=== PATIENT | female | born 1930 | race Caucasian/White ===

== ENCOUNTER 2018-03-28 16:02 | Observation (INO) | payer MEDICARE, BC ==
[~2018-03-28] VITALS: Ht 152.4 cm; Wt 59.0 kg
--- NOTE | 2018-03-28 16:07 | ER Report ---
History and Physical Time Seen By MD: 16:07 HPI/ROS CHIEF COMPLAINT: Hypokalemia HISTORY OF PRESENT ILLNESS: 87-year-old female patient presents to emergency room with complaint of hypokalemia. Patient was following up with her primary care provider who checked some labs. At that time she was found to have a potassium of 2.0. He was his recommendation at that time that she come to the emergency room for evaluation and ultimately admission to the hospital. Patient states that she is not having any chest pain. She states she does have pain to the right leg, she does have a pathologic fracture to that leg. She denies any nausea, vomiting or diarrhea. Patient was placed on Lasix for 5 days and reviewing her medication list did not have supplemental potassium were ordered. Patient denies any fevers, chills, nausea, vomiting or diarrhea. REVIEW OF SYSTEMS: Respiratory: No cough, no dyspnea. Cardiovascular: No chest pain, no palpitations. Gastrointestinal: No vomiting, no abdominal pain. Musculoskeletal: As noted above Allergies: Coded Allergies: Penicillins (Verified Allergy, Unknown, 03/28/18) Home Meds Reported Medications Mirtazapine (REMERON) 15 Mg Tab.rapdis, 7.5 MG PO DAILY 03/28/18 Sennosides (SENNA) 8.6 Mg Tablet, 8.6 MG PO 03/28/18 Ibuprofen (IBUPROFEN) 400 Mg Tablet, 1 TAB PO Q8H, TAB 03/28/18 Nystatin (NYSTATIN) 500,000 Unit Tablet, [id number] UNIT PO 03/28/18 Lidocaine/Menthol (LIDOPATCH) 1 Each Adh..patch, 1 EACH TP 03/28/18 Lidocaine Hcl (LIDOCAINE) 35.44 Gm Oint, 5 GM TP 03/28/18 Tuberculin,Purif.prot.deriv. (APLISOL) 5 Tub Unit/0.1 Ml Vial, 5 TUB ID, VIAL 03/28/18 Acetaminophen 500 Mg Tab (ACETAMINOPHEN EXTRA STRENGTH) 500 Mg Tablet, 500 MG PO Q4H, TAB 03/28/18 Oxycodone Hcl (OXYCONTIN) 10 Mg Tab.er.12h, 5 MG PO Q4-6H for PAIN, TAB 03/28/18 Magnesium Hydroxide (MILK OF MAGNESIA) 400 Mg/5 Ml Oral.susp, 400 MG PO, BOTTLE 03/28/18 Past Medical/Surgical History Patient has a past medical history of renal cell carcinoma. Patient has surgical history of right hip replacement, cataract surgery, hysterectomy, right carpal tunnel release. Patient has a family medical history of uterine cancer. Reviewed Nurses Notes: Yes Constitutional Vital Sign - Last 24 Hours 03/28/18 03/28/18 03/28/18 03/28/18 16:02 16:11 16:13 16:15 Temp 97.4 Pulse ??? 85 Resp 14 B/P (MAP) 94/54 (67) 94/54 93/57 (69) Pulse Ox 97 O2 Delivery Nasal Cannula 03/28/18 03/28/18 03/28/18 03/28/18 16:17 16:30 16:32 16:45 Pulse 82 82 Resp 18 13 B/P (MAP) 75/58 (64) 96/59 (71) Pulse Ox 97 96 03/28/18 03/28/18 03/28/18 03/28/18 16:47 17:00 17:02 17:15 Pulse 79 79 Resp 10 12 B/P (MAP) 96/55 (69) 103/57 (72) Pulse Ox 99 100 03/28/18 03/28/18 03/28/18 03/28/18 17:17 17:30 17:32 17:45 Pulse 78 81 Resp 14 12 B/P (MAP) 104/59 (74) 104/73 (83) Pulse Ox 99 99 O2 Delivery Nasal Cannula O2 Flow Rate 2 03/28/18 03/28/18 03/28/18 03/28/18 17:47 17:52 18:00 18:07 Pulse 82 82 ??? Resp 15 10 15 B/P (MAP) 119/63 (81) Pulse Ox 97 94 03/28/18 03/28/18 03/28/18 03/28/18 18:15 18:22 18:30 18:37 Pulse 79 79 Resp 8 10 B/P (MAP) 105/62 (76) 117/62 (80) Pulse Ox 99 99 03/28/18 18:45 B/P (MAP) 116/63 (80) Physical Exam General Appearance: The patient is alert, has no immediate need for airway protection and no current signs of toxicity. Respiratory: Chest is non tender, lungs are clear to auscultation. Cardiac: regular rate and rhythm Gastrointestinal: Abdomen is soft and non tender, no masses, bowel sounds normal. Musculoskeletal: Neck: Neck is supple and non tender. Extremities have full range of motion and are non tender. Patient does have tenderness to the right leg. Skin: No rashes or lesions. DIFFERENTIAL DIAGNOSIS: After history and physical exam differential diagnosis was considered for hypokalemia, pathologic fracture right lower extremity. Medical Decision Making Data Points Result Diagram: 03/28/18 1656 03/28/18 1656 Laboratory Hematology Test 03/28/18 16:56 Red Blood Count 4.68 M/uL (4.17-5.56) Mean Corpuscular Volume 73.6 fL (80.0-96.0) Mean Corpuscular Hemoglobin 22.8 pg (26.0-33.0) Mean Corpuscular Hemoglobin Concent 31.0 g/dL (32.0-36.0) Red Cell Distribution Width 39.2 % (11.5-14.5) Mean Platelet Volume 8.5 fL (7.2-11.1) Neutrophils (%) (Auto) 88.0 % (39.4-72.5) Lymphocytes (%) (Auto) 6.0 % (17.6-49.6) Monocytes (%) (Auto) 5.7 % (4.1-12.4) Eosinophils (%) (Auto) 0.1 % (0.4-6.7) Basophils (%) (Auto) 0.2 % (0.3-1.4) Nucleated RBC Relative Count (auto) 0.0 /100WBC Neutrophils # (Auto) 10.4 K/uL (2.0-7.4) Lymphocytes # (Auto) 0.7 K/uL (1.3-3.6) Monocytes # (Auto) 0.7 K/uL (0.3-1.0) Eosinophils # (Auto) 0.0 K/uL (0.0-0.5) Basophils # (Auto) 0.0 K/uL (0.0-0.1) Nucleated RBC Absolute Count (auto) 0.01 K/uL Peripheral Blood Smear Yes Y/N Sodium Level 140 mmol/L (137-145) Potassium Level 2.5 mmol/L (3.5-5.0) Chloride Level 101 mmol/L (98-107) Carbon Dioxide Level 31 mmol/L (22-31) Blood Urea Nitrogen 20 mg/dl (7-18) Creatinine 0.60 mg/dl (0.52-1.04) Glomerular Filtration Rate Calc > 60.0 Random Glucose 83 mg/dl (75-110) Calcium Level 7.8 mg/dl (8.4-10.2) Magnesium Level 2.6 mg/dl (1.7-2.2) Total Bilirubin 0.6 mg/dl (0.2-1.3) Aspartate Amino Transf (AST/SGOT) 27 U/L (0-35) Alanine Aminotransferase (ALT/SGPT) 21 U/L (0-56) Alkaline Phosphatase 385 U/L (0-126) Troponin I 0.031 ng/ml Total Protein 5.7 g/dl (6.3-8.2) Albumin 2.2 g/dl (3.5-5.0) Chemistry Test 03/28/18 16:56 White Blood Count 11.9 k/uL (4.5-11.0) Red Blood Count 4.68 M/uL (4.17-5.56) Hemoglobin 10.7 g/dL (12.0-16.0) Hematocrit 34.5 % (34.0-47.0) Mean Corpuscular Volume 73.6 fL (80.0-96.0) Mean Corpuscular Hemoglobin 22.8 pg (26.0-33.0) Mean Corpuscular Hemoglobin Concent 31.0 g/dL (32.0-36.0) Red Cell Distribution Width 39.2 % (11.5-14.5) Platelet Count 392 K/uL (150-450) Mean Platelet Volume 8.5 fL (7.2-11.1) Neutrophils (%) (Auto) 88.0 % (39.4-72.5) Lymphocytes (%) (Auto) 6.0 % (17.6-49.6) Monocytes (%) (Auto) 5.7 % (4.1-12.4) Eosinophils (%) (Auto) 0.1 % (0.4-6.7) Basophils (%) (Auto) 0.2 % (0.3-1.4) Nucleated RBC Relative Count (auto) 0.0 /100WBC Neutrophils # (Auto) 10.4 K/uL (2.0-7.4) Lymphocytes # (Auto) 0.7 K/uL (1.3-3.6) Monocytes # (Auto) 0.7 K/uL (0.3-1.0) Eosinophils # (Auto) 0.0 K/uL (0.0-0.5) Basophils # (Auto) 0.0 K/uL (0.0-0.1) Nucleated RBC Absolute Count (auto) 0.01 K/uL Peripheral Blood Smear Yes Y/N Glomerular Filtration Rate Calc > 60.0 Calcium Level 7.8 mg/dl (8.4-10.2) Magnesium Level 2.6 mg/dl (1.7-2.2) Total Bilirubin 0.6 mg/dl (0.2-1.3) Aspartate Amino Transf (AST/SGOT) 27 U/L (0-35) Alanine Aminotransferase (ALT/SGPT) 21 U/L (0-56) Alkaline Phosphatase 385 U/L (0-126) Troponin I 0.031 ng/ml Total Protein 5.7 g/dl (6.3-8.2) Albumin 2.2 g/dl (3.5-5.0) EKG/Imaging EKG Interpretation 12 lead EKG: Rhythm: normal sinus rhythm with a ventricular rate of 83 bpm Howard: normal QRS: normal ST segments: Flattened T waves consistent with hypokalemia. ED Course/Re-evaluation ED Course Patient was admitted on exam room, history and physical were obtained. Differen tial diagnoses were considered. On examination patient is alert and oriented, lungs are clear, abdomen is soft and nontender. Lab work was repeated as patient was sent over for a low potassium. Again the lab work confirmed patient does have a low potassium of 2.5. I discussed the case with Dr. Andrade, hospitalist. He did agree to accept the patient for admission with diagnosis of hypokalemia. Patient was started on K-rider here in the emergency room. Patient verbalized understanding and agreement with plan. I do believe that the underlying cause of the hypokalemia is the Lasix that she was on for 5 days. Decision to Disposition Date: Mar 28, 2018 Decision to Disposition Time: 17:52 Depart Departure Latest Vital Signs Vital Signs Date Time Temp Pulse Resp B/P (MAP) Pulse Ox O2 Delivery O2 Flow Rate FiO2 03/28/18 18:45 116/63 (80) 03/28/18 18:37 79 10 99 03/28/18 17:17 Nasal Cannula 2 03/28/18 16:13 97.4 Impression: Primary Impression: Hypokalemia Condition: Condition Unchanged Disposition: Admitted from ER Referrals: WINSOME EMMANUEL MD (PCP) FRANKLYN MCKEON Mar 28, 2018 16:07
--- NOTE | 2018-03-28 16:17 | EKG ---
[place] [facility] [place] NAME: ASHKAN BRAVO : [id number] MR: [id number] V: [id number] EXAM DATE: ORDERING PHYSICIAN: FRANKLYN MCKEON TECHNOLOGIST: Test Reason : Blood Pressure : / mmHG Vent. Rate : 083 BPM Atrial Rate : 083 BPM P-R Int : 132 ms QRS Dur : 074 ms QT Int : 402 ms P-R-T Axes : 065 029 269 degrees QTc Int : 472 ms Normal sinus rhythm T wave abnormality, consider anterolateral ischemia Prolonged QT Abnormal ECG No previous ECGs available Confirmed by Yoav Oconnell ([id number]) on 03/28/2018 8:14:34 PM Referred By: Confirmed By:Yoav Santillan
[2018-03-28 17:09] LABS: PLATELET COUNT, AUTOMATED 392 K/uL (150-450)
[2018-03-28] MEDS ORDERED: KCL (*) 20 MEQ/100 ML PREMIX 100 ML IV SCH (17:20)
[2018-03-28] MEDS ORDERED: LIDO5T TP (17:20)
[2018-03-28] MEDS ORDERED: MIRT-17 PO (17:20)
[2018-03-28] MEDS ORDERED: IBUP400T13 PO (17:20)
[2018-03-28] MEDS ORDERED: TUBE5VIA12 ID (17:20)
[2018-03-28] MEDS ORDERED: OXYC-823 PO (17:20)
[2018-03-28] MEDS ORDERED: LIDO1ADH TP (17:20)
[2018-03-28] MEDS ORDERED: SENN8.6T35 PO (17:20)
[2018-03-28] MEDS ORDERED: [UNRECOGNIZED DRUG - CODE] PO (17:20)
[2018-03-28] MEDS ORDERED: MOM PO (17:20)
[2018-03-28] MEDS ORDERED: ACET-2146 PO (17:20)
[2018-03-28] MEDS: NS(*) 0.9% 500 ML BAG 500 ML IV PRN (17:28)
[2018-03-28] MEDS ORDERED: ONDANSETRON 4 MG/2 ML VIAL IVP PRN (19:25)
[2018-03-28] MEDS ORDERED: ACETAMINOPHEN 325 MG TAB PO PRN (19:25)
[2018-03-28] MEDS ORDERED: POTASSIUM CHL 20 MEQ TABCR PO ONE (19:25)
[2018-03-28] MEDS ORDERED: FLUSH 10 ML SYR IVP PRN (19:25)
[2018-03-28 19:49] VITALS: BP 116/61
--- NOTE | 2018-03-28 19:58 | History & Physical ---
History of Present Illness Chief Complaint low potassium History of Present Illness 87F presented to [facility] ER from [facility] with low potassium. Reported 2.0 on lab there today, no symptoms. Repeat 2.5, recommended for observation and PRN replacement. Recently had 5 day course Lasix without supplementation. PMHx significant for RCC metastatic from . History Problems: (1) Renal cell carcinoma Status: Chronic Home Meds Reported Medications Mirtazapine (REMERON) 15 Mg Tab.rapdis, 7.5 MG PO DAILY 03/28/18 Sennosides (SENNA) 8.6 Mg Tablet, 8.6 MG PO 03/28/18 Ibuprofen (IBUPROFEN) 400 Mg Tablet, 1 TAB PO Q8H, TAB 03/28/18 Nystatin (NYSTATIN) 500,000 Unit Tablet, [id number] UNIT PO 03/28/18 Lidocaine/Menthol (LIDOPATCH) 1 Each Adh..patch, 1 EACH TP 03/28/18 Lidocaine Hcl (LIDOCAINE) 35.44 Gm Oint, 5 GM TP 03/28/18 Tuberculin,Purif.prot.deriv. (APLISOL) 5 Tub Unit/0.1 Ml Vial, 5 TUB ID, VIAL 03/28/18 Acetaminophen 500 Mg Tab (ACETAMINOPHEN EXTRA STRENGTH) 500 Mg Tablet, 500 MG PO Q4H, TAB 03/28/18 Oxycodone Hcl (OXYCONTIN) 10 Mg Tab.er.12h, 5 MG PO Q4-6H for PAIN, TAB 03/28/18 Magnesium Hydroxide (MILK OF MAGNESIA) 400 Mg/5 Ml Oral.susp, 400 MG PO, BOTTLE 03/28/18 Allergies: Coded Allergies: Penicillins (Verified Allergy, Unknown, 03/28/18) Review of Systems All Systems Reviewed/Normal: Yes, Except as Noted Constitutional: No Weight Loss Cardiovascular: No Chest Pain, No Palpitations Musculoskeletal: No Pain Exam Vital Signs Vital Signs Date Time Temp Pulse Resp B/P (MAP) Pulse Ox O2 Delivery O2 Flow Rate FiO2 03/28/18 19:42 ??? 03/28/18 19:22 11 99 03/28/18 19:15 113/63 (80) 03/28/18 17:17 Nasal Cannula 2 03/28/18 16:13 97.4 General Appearance: Awake, Afebrile, Other (Sleeping comfortably, appears emaciated, undernourished. ) Neuro: No Gross deficits ENT: Normal (hirsutism) Cardiovascular: Normal Rhythm & Peripheral Pulses Respiratory: No Respiratory Distress GI: Abd Soft and Non-Tender Musculoskeletal: No Weakness/Pain (Imobilizer for femur Fx, likely pathologic Fx) Extremities: Soft and Non Tender, Warm, Pulses, Perfused, Edema Integumentary: Skin Intact without Lesion / Mass Medical Decision Making Data Points Result Diagram: 03/28/186 03/28/181655 Assessment and Plan Problems: (1) Hypokalemia Status: Acute Assessment & Plan: K 2.5 on admission, will monitor on telemetry while replacing. Likely from poor intake given appearance and Lasix. (2) Renal cell carcinoma Status: Chronic Assessment & Plan: Metastatic per records . Family elected palliation. Elevated alk phos likely indication of allie mets. Has pahtologic Fx as well of femur. Venous Thromboembolism Antithrombotics Is Pt On Any Antithrombotics?: Yes Exam Sepsis Risk: No Definite Risk PURCELL LUKE MONTENEGRO DO Mar 28, 2018 19:58
[2018-03-28] MEDS ORDERED: MIRTAZAPINE 15 MG TAB PO PRN (20:00)
[2018-03-28] MEDS: KCL (*) 20 MEQ/100 ML PREMIX 100 ML IV SCH (21:29)
[2018-03-28 23:15] VITALS: BP 111/66
[2018-03-29] MEDS: KCL (*) 20 MEQ/100 ML PREMIX 100 ML IV SCH (01:58)
[2018-03-29 03:15] VITALS: BP 116/62
[2018-03-29 07:49] VITALS: Ht 152.4 cm; Wt 59.0 kg
[2018-03-29] MEDS ORDERED: ENOXAPARIN 40 MG/0.4ML SYR SC SCH (09:00)
[2018-03-29 09:43] VITALS: BP 105/58
[2018-03-29] MEDS ORDERED: POTA20PA25 PO (11:59)
--- NOTE | 2018-03-29 12:04 | Hospitalist Depart ---
Discharge Summary Reason for Hosp/Final Diag: (1) Hypokalemia Status: Acute Hospital Course & Plan: K 2.5 on admission. Likely from poor intake and Lasix. Her Mg was wnl. She was replaced with IV and PO KCL. Now it is wnl. She will go back to the [facility] and have oral KCL in powder form for a week. BMP on 04/01. (2) Renal cell carcinoma Status: Chronic Hospital Course & Plan: Metastatic per records . Family elected palliation. Elevated alk phos likely indication of allie mets. Has pahtologic Fx as well of femur. Departure Weight (Pounds): 130 Result Diagram: 03/28/18165503/29/18 05 Item Value Date Time Neutrophils (%) (Auto) 88.0 % H 03/28/181655 Lymphocytes (%) (Auto) 6.0 % L 03/28/181655 Monocytes (%) (Auto) 5.7 % 03/28/181655 Eosinophils (%) (Auto) 0.1 % L 03/28/181655 Basophils (%) (Auto) 0.2 % L 03/28/181655 Nucleated RBC Relative Count (auto) 0.0 /100WBC 03/28/181655 C. difficile Toxin B Gene (PCR) Negative 03/28/18 2200 Potassium Level 2.5 mmol/L *L 03/28/181655 Potassium Level 3.5 mmol/L 03/29/18 0543 Magnesium Level 2.6 mg/dl H 03/28/181655 Total Bilirubin 0.6 mg/dl 03/28/181655 Aspartate Amino Transf (AST/SGOT) 27 U/L 03/28/18 165 Alanine Aminotransferase (ALT/SGPT) 21 U/L 03/28/18 165 Alkaline Phosphatase 385 U/L H 03/28/181655 Troponin I 0.031 ng/ml 03/28/181655 Total Protein 5.7 g/dl L 03/28/18 165 Albumin 2.2 g/dl L 03/28/18 165 EKG Vent. Rate : 083 BPM Atrial Rate : 083 BPM P-R Int : 132 ms QRS Dur : 074 ms QT Int : 402 ms P-R-T Axes : 065 029 269 degrees QTc Int : 472 ms Normal sinus rhythm T wave abnormality, consider anterolateral ischemia Prolonged QT Abnormal ECG No previous ECGs available Confirmed by Yoav Oconnell ([id number]) on 03/28/2018 8:14:34 PM Referred By: Confirmed By:Yoav Santillan Condition: Improved Discharge: Home Discharge Instructions Home Meds Active Scripts Potassium Chloride (POTASSIUM CHLORIDE) 20 Meq Packet, 20 MEQ PO QDAY, #7 PACKET Prov:BRANDAN ACEVES MD 03/29/18 Reported Medications Mirtazapine (REMERON) 15 Mg Tab.rapdis, 7.5 MG PO DAILY 03/28/18 Sennosides (SENNA) 8.6 Mg Tablet, 8.6 MG PO Q12H PRN for constipation 03/28/18 Nystatin (NYSTATIN) 500,000 Unit Tablet, [id number] UNIT PO 03/28/18 Lidocaine/Menthol (LIDOPATCH) 1 Each Adh..patch, 1 EACH TP 03/28/18 Lidocaine Hcl (LIDOCAINE) 35.44 Gm Oint, 5 GM TP 03/28/18 Acetaminophen 500 Mg Tab (ACETAMINOPHEN EXTRA STRENGTH) 500 Mg Tablet, 500 MG PO Q4H, TAB 03/28/18 Oxycodone Hcl (OXYCONTIN) 10 Mg Tab.er.12h, 5 MG PO Q4-6H for PAIN, TAB 03/28/18 Magnesium Hydroxide (MILK OF MAGNESIA) 400 Mg/5 Ml Oral.susp, 400 MG PO, BOTTLE 03/28/18 Discontinued Reported Medications Ibuprofen (IBUPROFEN) 400 Mg Tablet, 1 TAB PO Q8H, TAB 03/28/18 Tuberculin,Purif.prot.deriv. (APLISOL) 5 Tub Unit/0.1 Ml Vial, 5 TUB ID, VIAL 03/28/18 Diet: Regular Activity: As Tolerated Special Instructions: BMP on 04/01. Follow up with PCP in a couple of days to a week. Copies to: LILLY RODRIGUEZ MD ; Venous Thromboembolism Antithrombotics Is Pt On Any Antithrombotics?: Yes BRANDAN ACEVES MD Mar 29, 2018 12:04
--- NOTE | 2018-03-29 12:48 | Medical Nutrition Therapy ---
Nutrition Anthropometrics Height (Inches): 60.00 Height (Calculated Centimeters: 152.723237 Weight (Pounds): 130 Weight (Calculated Kilograms): 58.967 BMI: 25.4 Alejandro Nutrition Score: Probably Inadequate Alejandro Nutrition Risk Score: 12 Dietary Referral Nutrition Risk Factors: Nutrition Risk Comment: Physical Findings Physical Appearance: Overweight BMI 25-29 Skin Appearance Skin Appearance: Edema Edema Location Modifier: Both Edema Location: Leg Type of Edema: Degree of Edema: 3+ Gastrointestinal Symptoms GI Symtoms: Diarrhea, Change in Bowel Pattern Tube Present: Bowel Sounds: Recent Bowel Pattern: Stool Characteristics: Brown, Liquid Nutritional Diagnosis Nutritional Risk Acuity 2: Head/Neck/GI Cancer (Renal cell carninoma) Nutritional Risk Acuity 3: Fx & > 80 yrs, Cancer Past Medical History: Hx of renal cell carcinoma, pneumonia Nutritional Acuity: 2-Moderate Nutrition Diagnosis: Increased Nutrient Needs Nutrition Etiology: Physiological Causes Nutrition Problem/Etiology/Sym: Increased nutrient needs r/t physiological causes AEB Alb 2.2, BG 65 Energy Requirement: 1200 (M-SJ * 1.2) Protein Requirement: 60 (1g/kg) Fluid Requirement: 1200 (1ml/kcal) Diet Type: Diet as Tolerated ISAEL/REG Nutrition Intervention: Cont diet as ordered, Encourage intake, Between meal supplement Diet Comment To RSA: PROVIDE NUTR SUPPLEMENT Nutrition Monitoring & Eval Nutrition Goals: Drink > 1200 cc/day, Eat 75-100% Meal RD Patient Assessment Time: [address] Assessment Type: RD Assessment Patient Nutrition Acuity: 2-Moderate Follow Up Date: Apr 02, 2018 Nutritional Comment: 03/29 Pt admitted for hypokalemia. Pt was on 5 days of Lasix without a K+ supplement. Pt admitted with 2.5 K+ on 03/28, up to 3.5 today. Pt also has renal cell carcinoma, and pathologic fx of femur. Pt denies any n/v/d. Pt on ISAEL, no intake charted. Pt's height was taken from previous admission. Alb very low at 2.2 and BG low at 65 this am. Pt seems to be undernourished, will follow. GLENN CARIAS Mar 29, 2018 09:21
[2018-03-31] MEDS ORDERED: INFLUENZA VIRUS VAC 0.5ML SYR IM ONLY ONE (09:00)
== END 2018-03-29 12:04 | disposition home or self-care (01) ==
LOC: ER 16:19 → MED 18:45 → INTOOBSV 18:45
PROVIDERS: ADMIT Internal Medicine; ATTEND Internal Medicine
DX: E87.6 Hypokalemia (principal); T50.1X5A Adverse effect of loop [high-ceiling] diuretics, initial encounter; Z85.528 Personal history of other malignant neoplasm of kidney
CPT/HCPCS: 36415; 83735; 84484; 85025; 87493; 93005; 96360; 96361; 96372; 99283; A9270; G0378; J1650; J3480; J7040; 82040; 82247; 82310; 82374; 82435; 82565; 82947; 84075; 84132; 84155; 84295; 84450; 84460; 84520; 99284

== ENCOUNTER 2018-04-01 07:26 | Emergency (ER) | payer MEDICARE, BC ==
[2018-03-29 07:49] VITALS: BMI 25.4
[~2018-04-01 07:26] MED LIST changes: -FURO-45 PO
--- NOTE | 2018-04-01 07:36 | ER Report ---
History and Physical Time Seen By MD: 07:43 HPI/ROS CHIEF COMPLAINT: Evaluation status post fall. Also history of low potassium HISTORY OF PRESENT ILLNESS: Patient is a 87-year-old female who was sent from alf facility for evaluation of right lower extremity pain status post fall. Patient had recent admission on March 28 for low potassium. Patient has a history of metastatic anal cell cancer. She also has a known pathological fracture to the lower end of the right femur. Patient is in a external J scope brace. Patient is DO NOT RESUSCITATE and family has recommended only palliative type care. REVIEW OF SYSTEMS: Respiratory: No cough, no dyspnea. Cardiovascular: No chest pain, no palpitations. Gastrointestinal: No vomiting, no abdominal pain. Musculoskeletal: Right lower extremity pain Allergies: Coded Allergies: Penicillins (Verified Allergy, Unknown, 03/28/18) Home Meds Reported Medications Furosemide (FUROSEMIDE) 20 Mg Tablet, 1 TAB PO DAILY, TAB 04/01/18 Mirtazapine (REMERON) 15 Mg Tab.rapdis, 7.5 MG PO DAILY 03/28/18 Sennosides (SENNA) 8.6 Mg Tablet, 8.6 MG PO Q12H PRN for constipation 03/28/18 Nystatin (NYSTATIN) 500,000 Unit Tablet, [id number] UNIT PO 03/28/18 Lidocaine/Menthol (LIDOPATCH) 1 Each Adh..patch, 1 EACH TP 03/28/18 Acetaminophen 500 Mg Tab (ACETAMINOPHEN EXTRA STRENGTH) 500 Mg Tablet, 500 MG PO Q4H, TAB 03/28/18 Oxycodone Hcl (OXYCONTIN) 10 Mg Tab.er.12h, 5 MG PO Q4H for PAIN, TAB 03/28/18 Magnesium Hydroxide (MILK OF MAGNESIA) 400 Mg/5 Ml Oral.susp, 400 MG PO, BOTTLE 03/28/18 Discontinued Reported Medications Lidocaine Hcl (LIDOCAINE) 35.44 Gm Oint, 5 GM TP 03/28/18 Ibuprofen (IBUPROFEN) 400 Mg Tablet, 1 TAB PO Q8H, TAB 03/28/18 Tuberculin,Purif.prot.deriv. (APLISOL) 5 Tub Unit/0.1 Ml Vial, 5 TUB ID, VIAL 03/28/18 Discontinued Scripts Potassium Chloride (POTASSIUM CHLORIDE) 20 Meq Packet, 20 MEQ PO QDAY, #7 PACKET Prov:BRANDAN AECVES MD 03/29/18 Past Medical/Surgical History History of metastatic renal cell cancer, history of pathological fracture to right femur Constitutional Vital Sign - Last 24 Hours 04/01/18 04/01/18 04/01/18 04/01/18 07:29 07:42 08:00 08:15 Temp 98.8 Pulse 94 89 Resp 12 B/P (MAP) 136/66 136/66 (89) 128/67 (87) Pulse Ox 100 100 O2 Delivery Nasal Cannula 04/01/18 04/01/18 04/01/18 04/01/18 08:30 08:45 09:30 09:45 Pulse 90 88 83 B/P (MAP) 135/80 (98) 126/68 (87) Pulse Ox 100 98 100 04/01/18 04/01/18 10:00 10:15 Pulse 83 82 B/P (MAP) 138/74 (95) Pulse Ox 100 100 Physical Exam General Appearance: The patient is alert, has no immediate need for airway protection and no current signs of toxicity. Eyes: Pupils equal and round no injection. Respiratory: Chest is non tender, lungs are clear to auscultation. Cardiac: regular rate and rhythm [ ] Gastrointestinal: Abdomen is soft and non tender, no masses, bowel sounds nor mal. Musculoskeletal: Neck: Neck is supple and non tender. Extremities: Right lower extremity is in external fixation device Skin: No rashes or lesions. [ ] Medical Decision Making EKG/Imaging Imaging FACILITY: [facility] PATIENT NAME: Blanka Yañez : 1930 MR: [id number] V: [id number] EXAM DATE: ORDERING PHYSICIAN: EVER GOMEZ TECHNOLOGIST: Location: [facility] [place] Patient: Blanka Yañez : 1930 Visit/Account:[id number] Date of Sevice: 04/01/2018 FEMUR RIGHT, HIP RIGHT Indication: Fall, pain Comparison: None. Findings: There is a transverse fracture at the distal femur, with posterior displacement of the distal fracture fragment. 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 There are degenerative changes with narrowing of the left hip joint space. Bones of the pelvis are intact. IMPRESSION: 1. Right Femur radiograph: Transverse fracture distal femur, with the distal fracture fragment displaced posteriorly. 2. Right hip radiograph: Postoperative changes right total hip arthroplasty, with hardware in good position. 3. Severe degenerative changes left hip. Report Dictated By: Christopher Reyes at 04/01/2018 9:29 AM Report E-Signed By: Christopher Reyes at 04/01/2018 9:32 AM WSN:[id number] FACILITY: [facility] PATIENT NAME: Blanka Yañez : 1930 MR: [id number] V: [id number] EXAM DATE: ORDERING PHYSICIAN: EVER GOMEZ TECHNOLOGIST: Location: [facility] [place] Patient: Blanka Yañez : 1930 Visit/Account:[id number] Date of Sevice: 04/01/2018 CT Head without contrast Indication: Fall. Headache. Comparison: None available Technique: Axial CT images were obtained through the brain from the skull base to the vertex without administration of IV contrast. Reformatted coronal and sagittal images were also obtained. One of the following dose optimization techniques was utilized in the performance of this exam: automated exposure control; adjustment of the mA and/or kV according to the patient's size; or use of an iterative reconstruction technique. Specific details can be referenced in the facility's radiology CT exam operational policy. Findings: No evidence of mass, mass effect, or midline shift. No acute intracranial hemorrhage or acute territorial infarction. Extensive periventricular deep matter chronic ischemic changes noted. Moderate atherosclerotic calcifications bilateral intracranial internal carotid arteries as well. The visualized paranasal sinuses and mastoid air cells are clear. IMPRESSION: 1. No acute intracranial abnormality. 2. Extensive periventricular deep white matter chronic ischemic changes noted. Report Dictated By: Tad Easton MD at 04/01/2018 9:29 AM Report E-Signed By: Tad Easton MD at 04/01/2018 9:31 AM WSN:[id number] ED Course/Re-evaluation ED Course 04/01/2018 8:22:07 am plan at this time will be to check electrolytes we'll also x-ray right lower extremity to look for any type of new injury or fracture. X-ray does demonstrate a distal femur fracture which apparently is not acute as this was on her previous diagnosis sheet and was noted on her prior visit March 28 and through her admission on March 29 in the hospital. No new fractures were identified. Potassium is 3.8. We will send patient back to alf facility. Decision to Disposition Date: Apr 01, 2018 Decision to Disposition Time: 10:12 Depart Departure Latest Vital Signs Vital Signs Date Time Temp Pulse Resp B/P (MAP) Pulse Ox O2 Delivery O2 Flow Rate FiO2 04/01/18 10:15 82 100 04/01/18 10:00 138/74 (95) 04/01/18 07:29 98.8 12 Nasal Cannula Impression: Primary Impression: Fall Additional Impression: Femur fracture, right Condition: Condition Unchanged Disposition: HOME OR SELF-CARE Referrals: LILLY RODRIGUEZ MD (PCP) Patient Instructions: Fall Prevention (GEN), Fall Prevention for Older Adults (ED) Problem Qualifiers Primary Impression: Fall Encounter type: initial encounter Qualified Codes: W19.XXXA - Unspecified fall, initial encounter Additional Impression: Femur fracture, right Encounter type: subsequent encounter Femur location: distal Fracture type: closed Fracture morphology: other fracture Fracture healing: with nonunion Qualified Codes: S72.491K - Other fracture of lower end of right femur, subsequent encounter for closed fracture with nonunion EVER GOMEZ MD Apr 01, 2018 07:36
[2018-04-01] MEDS ORDERED: FURO-45 PO (09:14)
--- NOTE | 2018-04-01 09:36 | RADIOLOGY IMAGING REPORT ---
FACILITY: [facility] [place] PATIENT NAME: Blanka Yañez : 1930 MR: [id number] V: [id number] EXAM DATE: ORDERING PHYSICIAN: EVER GOMEZ TECHNOLOGIST: Location: [facility] Patient: Blanka Yañez : 1930 Visit/Account:[id number] Date of Sevice: 04/01/2018 CT Head without contrast Indication: Fall. Headache. Comparison: None available Technique: Axial CT images were obtained through the brain from the skull base to the vertex without administration of IV contrast. Reformatted coronal and sagittal images were also obtained. One of the following dose optimization techniques was utilized in the performance of this exam: autom ated exposure control; adjustment of the mA and/or kV according to the patient's size; or use of an i terative reconstruction technique. Specific details can be referenced in the facility's radiology CT exam operational policy. Findings: No evidence of mass, mass effect, or midline shift. No acute intracranial hemorrhage or acute territorial infarction. Extensive periventricular deep matter chronic ischemic changes noted. Moderate atherosclerotic calcif ications bilateral intracranial internal carotid arteries as well. The visualized paranasal sinuses and mastoid air cells are clear. IMPRESSION: 1. No acute intracranial abnormality. 2. Extensive periventricular deep white matter chronic ischemic changes noted. Report Dictated By: Tad Easton MD at 04/01/2018 9:29 AM Report E-Signed By: Tad Easton MD at 04/01/2018 9:31 AM WSN:[email or web address]
--- NOTE | 2018-04-01 09:36 | RADIOLOGY IMAGING REPORT ---
FACILITY: [facility] PATIENT NAME: Blanka Yañez : 1930 MR: [id number] V: [id number] EXAM DATE: ORDERING PHYSICIAN: EVER GOMEZ TECHNOLOGIST: Location: [facility] Patient: Blanka Yañez : 1930 Visit/Account:[id number] Date of Sevice: 04/01/2018 FEMUR RIGHT, HIP RIGHT Indication: Fall, pain Comparison: None. Findings: There is a transverse fracture at the distal femur, with posterior displacement of the dist al fracture fragment. 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 There are degenerative changes with narrowing of the left hip joint space. Bones of the pelvis are i ntact. IMPRESSION: 1. Right Femur radiograph: Transverse fracture distal femur, with the distal fracture fragment displ aced posteriorly. 2. Right hip radiograph: Postoperative changes right total hip arthroplasty, with hardware in good p osition. 3. Severe degenerative changes left hip. Report Dictated By: Christopher Reyes at 04/01/2018 9:29 AM Report E-Signed By: Christopher Reyes at 04/01/2018 9:32 AM WSN:[email or web address]
--- NOTE | 2018-04-01 09:37 | RADIOLOGY IMAGING REPORT ---
FACILITY: [facility] [place] PATIENT NAME: Blanka Yañez : 1930 MR: [id number] V: [id number] EXAM DATE: ORDERING PHYSICIAN: EVER GOMEZ TECHNOLOGIST: Location: [facility] Patient: Blanka Yañez : 1930 Visit/Account:[id number] Date of Sevice: 04/01/2018 FEMUR RIGHT, HIP RIGHT Indication: Fall, pain Comparison: None. Findings: There is a transverse fracture at the distal femur, with posterior displacement of the dist al fracture fragment. 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 There are degenerative changes with narrowing of the left hip joint space. Bones of the pelvis are i ntact. IMPRESSION: 1. Right Femur radiograph: Transverse fracture distal femur, with the distal fracture fragment displ aced posteriorly. 2. Right hip radiograph: Postoperative changes right total hip arthroplasty, with hardware in good p osition. 3. Severe degenerative changes left hip. Report Dictated By: Christopher Reyes at 04/01/2018 9:29 AM Report E-Signed By: Christopher Reyes at 04/01/2018 9:32 AM WSN:[email or web address]
[2018-04-01 10:00] VITALS: BP 138/74
== END 2018-04-01 10:41 | disposition home or self-care (01) ==
LOC: ER 07:32
DX: S72.491K Other fracture of lower end of right femur, subsequent encounter for closed fracture with nonunion (principal)
CPT/HCPCS: 70450; 82310; 82374; 82435; 82565; 82947; 84132; 84295; 84520; 99284

== ENCOUNTER → 2018-04-01 | Outpatient (CLI) | payer BC, MEDICARE, OTHER ==
[2018-03-29 07:49] VITALS: BMI 25.4
[~2018-04-01] MED LIST: ACET-2146 PO; FURO-45 PO; IBUP400T13 PO; LIDO1ADH TP; LIDO5T TP; MIRT-17 PO; MOM PO; OXYC-823 PO; POTA20PA25 PO; SENN8.6T35 PO; TUBE5VIA12 ID; [UNRECOGNIZED DRUG - CODE] PO
== END ==
LOC: AMB 07:12
PROVIDERS: ATTEND Nurse Practitioner
DX: M21.951 Unspecified acquired deformity of right thigh (principal); R60.0 Localized edema; W06.XXXA Fall from bed, initial encounter
CPT/HCPCS: A0425; A0427

== ENCOUNTER → 2018-04-01 | Outpatient (REF) | payer MEDICARE, BC ==
[2018-03-29 07:49] VITALS: BMI 25.4
== END ==
LOC: ZZSENDIN 07:13
PROVIDERS: ATTEND Family Medicine
DX: E87.6 Hypokalemia (principal)
CPT/HCPCS: 82310; 82374; 82435; 82565; 82947; 84132; 84295; 84520

== ENCOUNTER → 2018-04-01 | Outpatient (CLI) | payer BC, MEDICARE, OTHER ==
[2018-03-29 07:49] VITALS: BMI 25.4
== END ==
LOC: AMB 10:35
PROVIDERS: ATTEND Nurse Practitioner
DX: M25.551 Pain in right hip (principal)
CPT/HCPCS: A0425; A0428

== ENCOUNTER → 2018-04-07 | Outpatient (CLI) | payer MEDICARE, BC ==
[2018-03-29 07:49] VITALS: BMI 25.4
[~2018-04-07] MED LIST changes: +FURO-45 PO
== END ==
LOC: AMB 14:15
PROVIDERS: ATTEND Nurse Practitioner
DX: C41.9 Malignant neoplasm of bone and articular cartilage, unspecified (principal)
CPT/HCPCS: A0425; A0428